=== PATIENT | female | born 1955 | race Caucasian/White ===

== ENCOUNTER 2016-05-26 08:41 | Day surgery (SDC) | payer OTHER ==
[~2016-05-26] VITALS: Ht 167.6 cm; Wt 82.3 kg
--- NOTE | 2016-05-26 07:46 | PCM.HPANE ---
Patient Data Surgeon Admitting Provider: Attending Provider:Shira Recinos MD Primary Care Physician:Phill Soares MD Other Provider:ShalaocAna Laura[place] Anesthesia Reason for Visit Urge Incontinence, Urgency Of Urination Ht/WT & BMI Height (Feet): 5 Height (Inches): 6 Weight (Kilograms): 83.915 Body Mass Index 29.00 Allergies Coded Allergies: Sulfa (Sulfonamide Antibiotics) (Verified Allergy, Severe, RASH, 05/21/16) ciprofloxacin (Verified Allergy, Severe, RASH, 05/21/16) lisinopril (Verified Allergy, Severe, HYPERKALEMIA, 05/21/16) phenazopyridine (Verified Allergy, Severe, hives, 05/21/16) Past Anesthesia History Anesthesia History: Denies:: Abnormal Airway, Anesthesia Reactions, Difficult Intubation, Fam Anesthesia Reaction, Fam Malignant Hypertherm, Malignant Hyperthermia Diabetes History Hx Diabetes?: No MRSA MRSA: No Medications Hypertension Medication: Yes (FELODIPINE) Reported Medications Sulfamethoxazole/Trimeth 800-160 mg (Bactrim DS 800-160 mg)1 Each Tablet1 Tablet PO BID Ref 0 x 14 days (start 05/13/16) 05/21/[address] 40 Mg Tablet.dr40 Mg PO DAILY Ref 0 05/21/16 Oxybutynin Chloride ER 15 Mg Tab.er.2415 Mg PO DAILY Ref 0 05/21/16 Felodipine ER 10 Mg Tab.er.24h10 Mg PO DAILY Ref 0 05/21/16 Atorvastatin (Lipitor)20 Mg Cefriu54 Mg PO DAILY Ref 0 05/21/16 Discontinued Reported Medications Oxybutynin Chloride 5 Mg Tablet5 Mg PO TID Ref 0 11/04/15 Fesoterodine Fumarate-Expunged Drug, Do Not R (Toviaz-Expunged Drug, Do Not Renew!)8 Mg Tab.sr.24h8 Mg PO DAILY 01/12/12 Omeprazole-Expunged Drug, Do Not Renew! 40 Mg Capsule.dr40 Mg PO DAILY 01/12/12 Felodipine-Expunged Drug, Do Not Renew! (Plendil-Expunged Drug, Do Not Renew!)5 Mg Tablet5 Mg PO DAILY 01/12/12 Atorvastatin-Expunged Drug, Do Not Renew! 10 Mg Fzzckc73 Mg PO DAILY 01/12/12 Nitrofurantoin Macrocrystal-Expunged Drug, Do (Macrodantin-Expunged Drug, Do Not Renew!)50 Mg Asioajd52 Mg PO DAILY 02/07/08 History History of ENT Problems?: Yes HEENT History: Positive for:: Dysphagia (HX OF) Denies:: Abnormal Airway Difficult Intubation Hearing Problem Other HEENT Pertinent History: S/P TONSILLECTOMY Hx of Heart Problems?: Yes Cardiovascular History: Positive for:: Cardiac Surgery (HEART CATH 03/2011) Chest Pain (ATYPICAL 03/2011) Hypertension (HYPERLIPIDEMIA) Denies:: AICD Atrial Fibrillation Congestive Heart Failure Edema Heart Murmur (MPS 03/2011 (FALSE POSITIVE) EF 72%) Irregular Heartbeat Pacemaker Thrombophlebitis Valvular Heart Disease Hx of Respiratory Problem?: No Respiratory History: Denies:: Asthma COPD Cough Hemoptysis Pneumonia Tuberculosis Use of C-PAP Machine Hx Neurologic Problems?: No Neurological History: Denies:: CVA Dementia Hx of GI Problems?: Yes Gastrointestinal History: Positive for:: Gall Bladder Disease (S/P ELIDA) Gastroesphageal Reflux Heartburn Hiatal Hernia (S/P SENG FUNDOPLICATION) Denies:: Cirrhosis Diverticulitis Gastrointestinal Bleeding Hepatitis Rectal Bleeding Other GI Pertinent History: S/P APPY Hx of Problems?: Yes Genitourinary History: Positive for:: Urinary Tract Infection (HX OF UTI'S & INTERSTITIAL CYSTITIS S/P BLADDER "STRETCHING") Other Pertinent History: C/OF LUTS Female Hx: Positive for:: Endometriosis Denies:: Currently Pelvic Inflammatory Problems with Breasts? Skin History: Denies:: History Skin Disorders? Pressure Ulcers Hx Musculoskeletal Problems?: Yes Musculoskeletal History: Positive for:: Osteoarthritis (S/P CORTISONE INJECTIONS LT HIP (LAST 03/2016)) Denies:: Back Injury (C/OF LOWER BACK PAIN) Joint Replacement Hx of Psycho/Social Problems?: Yes Psycho Social History: Positive for:: Anxiety Denies:: Hx Depression Hx Surgeries?: Yes (HYST,SENG FUNDOPLICATION,APPY,ELIDA,BLADDER STRETCHING & SLING,HEART CATH) Hx Any Other Health Problems?: Yes Other History: Positive for:: Hospitalization (CARDIAC) Denies:: Cancer Endocrine Disease Thyroid Disease History Blood Transfusions: Denies:: Blood Transfuse Reaction Blood Transfusions Hx Diabetes: No Hx Alcohol Use: Yes (OCCAS)Hx Substance Use: NoHave You Smoked inLast 12 mo: NoApprox How Many Cigarettes/day: 1PPD Stop/Bang S-Snoring: Do You Snore Loudly: No T-Tired: feel tired, fatigued: No O-Obsered: Observed not breath: No P-Blood Pressure: treated: Yes B- Body Mass Index > 35 kg/m2: No A- Age over 50: Yes N- Neck Large Circumference: No G- Gender Male: No LEEANNE Total Score: 2 LEEANNE Risk Assessment: Low Risk, <3 Yes Risk Assessment Category Category 1A: Patient has history of documented sleep apnea, and HAS NOT received any narcotic, sedative or anesthesia administration during this stay. Category 1B: Patient has history of documented sleep apnea, and HAS received any narcotic , sedative or anesthesia administration during this stay Category 2: Patient has SUSPECTED Obstructive Sleep Apnea, and HAS received any narcotic , sedative or anesthesia administration during this stay. Category 3: Patient has SUSPECTED Obstructive Sleep Apnea and HAS NOT received narcotic, sedative or anesthesia administration during this stay. Category 4: Outpatient in Procedural Areas with known sleep apnea or who screen positive for High Risk via the STOP/BANG questionnaire. Exam Exam General Appearance: Alert, Oriented X3, Cooperative, No Acute Distress HEENT/AIRWAY: MP 2 Lungs: Clear to Auscultation, Normal Air Movement Heart: Exam Unremarkable, Regular Rate/Rhythm, No Murmurs/Rubs/Gallops Plan Impression Patient chart reviewed, patient interviewed and anesthestic plan with risks, benefits, and alternatives discussed, and informed consent obtained. ASA Physical Status: ASA2 Mod Systemic Disease Anesthetic Plan: MAC Bene/Risks/Altern/Consents: Yes HP Complete Prior to Induction: Yes Kale Thornton MD May 26, 2016 07:46
[~2016-05-26 08:41] MED LIST: ATOR20TA PO; CeFAZolin 2 Gm/50 mL D5W IV Premix IV ONE; FELO10TA3 PO; Lactated Ringer's 1,000 ML IV SCH; OXYB15TA PO; PANT40TA3 PO; SULF1TAB35 PO
[2016-05-26] MEDS ORDERED: Propofol 10,000 mCg/mL 20 mL Inj ONE (08:42)
[2016-05-26] MEDS ORDERED: fentaNYL-PF 50 mCg/mL 2 mL Inj ONE (08:42)
[2016-05-26 09:10] VITALS: BP 115/70; PULSE 65; RESP 18; O2SAT 94
[2016-05-26] MEDS ORDERED: Lactated Ringer's 1,000 ML IV ONE (09:28)
[2016-05-26] MEDS ORDERED: EPHEDrine Sulfate 50 mg/mL Inj IVPUSH PRN (10:55)
[2016-05-26] MEDS ORDERED: hydrALAZINE 20 mg/mL Inj IVPUSH PRN (10:55)
[2016-05-26] MEDS ORDERED: Lactated Ringer's 500 ML IV PRN (10:55)
[2016-05-26] MEDS ORDERED: Labetalol 5 mg/mL 4 mL Inj IV PRN (10:55)
[2016-05-26] MEDS ORDERED: Atropine 0.4 mg/mL Inj IVPUSH PRN (10:55)
[2016-05-26] MEDS ORDERED: Ondansetron 2 mg/mL 2 mL Inj IVPUSH PRN (10:55)
[2016-05-26] MEDS ORDERED: Dexamethasone 4 mg/mL Inj IVPUSH PRN (10:55)
[2016-05-26] MEDS ORDERED: fentaNYL-PF 50 mCg/mL 2 mL Inj IVPUSH PRN (10:55)
[2016-05-26] MEDS ORDERED: Phenylephrine 10,000 mCg/mL Inj IVPUSH PRN (10:55)
[2016-05-26] MEDS ORDERED: Lactated Ringer's 1,000 ML IV SCH (10:55)
[2016-05-26] MEDS ORDERED: HYDROmorphone 1 mg/mL Inj IVPUSH PRN (10:55)
[2016-05-26] MEDS ORDERED: MetoCLOpramide 5 mg/mL 2 mL Inj IVPUSH PRN (10:55)
[2016-05-26] MEDS ORDERED: Bupivacaine-MPF 0.25%/EPI 30 mL Inj INJ ONE (11:03)
[2016-05-26] MEDS ORDERED: Vancomycin 1,000 mg Inj IRRIGATION ONE (11:03)
[2016-05-26] MEDS ORDERED: Gentamicin 40 mg/mL 2 mL Inj IRRIGATION ONE (11:03)
[2016-05-26] MEDS ORDERED: Bupivacaine-MPF 0.5% W/EPI 30 mL Inj INFILTRATE ONE (11:03)
[2016-05-26] MEDS ORDERED: HYDROcodone-APAP 5-325 mg Tablet PO PRN (11:50)
[2016-05-26] MEDS ORDERED: Ondansetron 8 mg ODT Tablet PO PRN (11:50)
[2016-05-26 11:53] VITALS: BP 131/75; PULSE 61; RESP 16; O2SAT 94
[2016-05-26 12:18] VITALS: BP 115/68; PULSE 65; RESP 14; O2SAT 94
--- NOTE | 2016-05-26 12:35 | PCM.ANEP1 ---
Post Anesthesia Phase 1 PACU Phase 1 Assessment Vital Signs Vital Signs Date Time Temp Pulse Resp B/P Pulse Ox O2 Delivery O2 Flow Rate FiO2 05/26/16 12:18 65 14 115/68 94 Room Air 05/26/16 11:53 36.1 61 16 131/75 94 Room Air 05/26/16 09:10 37.0 65 18 115/70 94 Room Air Anesthetic Administered: MAC Level of Alertness: Awake, talking DE LA GARZA's with Equal Strength: Yes Pain: No Nausea or Vomiting: No Oxygen Delivery: Room Air Lungs: Clear to Auscultation, Normal Air Movement Kale Thornton MD May 26, 2016 12:35
--- NOTE | 2016-05-26 14:13 | PCM.ANEP2 ---
Post Anesthesia Evaluation ASA/CMS Post Anesthesia VS in Patient's Normal Range?: Yes Resp Stable; Airway Patent?: Yes CV Function & Hydration Stable: Yes Mental Status Recovered?: Yes Pain control Satisfactory?: Yes N/V Control Satisfactory?: Yes Kale Thornton MD May 26, 2016 14:13
--- NOTE | 2016-05-27 14:06 | OP ---
[address] [address] OPERATIVE REPORT PATIENT: CONOR LE : 1955 MR#: [id number] ADMIT: 05/26/2016 JOB ID: [id number] DATE OF SURGERY: 05/27/2016 SURGEON: Shira Recinos MD PROCEDURE: Stage 1 InterStim implant to include incision and placement of a transforaminal quadripolar electrode through the right S3 foramen as well as fluoroscopy and interpretation guidance. PREOPERATIVE DIAGNOSIS(ES): Urge urinary incontinence; urgency, frequency severe. POSTOPERATIVE DIAGNOSIS(ES): Urge urinary incontinence; urgency, frequency severe. INDICATIONS: The patient is a 60-year-old woman with a longstanding history of severe urinary symptoms including urinary urgency, frequency, urge incontinence failing conservative measures and multiple medications. Electing trial of sacral nerve modulation for her severe problems. PROCEDURE IN DETAIL: After appropriate informed consent was obtained, the patient was brought to the operating room. She received IV antibiotics prior to onset of the procedure. She was made comfortable in the prone position. All pressure points were carefully padded. She was cleaned, prepped, and draped the usual sterile fashion. The fluoroscope was brought in to identify the bony landmarks. We used a half/half mixture of lidocaine/Marcaine for local anesthesia. We anesthetized the area overlying the S3 foramen. A finder needle was used to traverse the right S3 foramen. We had excellent responses of toe and azeb indicating an S3 response. This finder needle was converted in Seldinger fashion to the obturator sheath to introduce the quadripolar electrode which was advanced under fluoroscopic guidance into good position. We had excellent responses on all four electrodes at low thresholds. The sheath was pulled back, allowing the tines to deploy, and locking the lead in place. We then created a right-sided buttock pocket sharply bluntly with electrocautery, again using local anesthesia. I tunneled the distal end of the lead out into this pocket. We made a connection to the extension wire which was then tunneled to the contralateral side to provide maximum distance between the externalized portion of the wire and the remaining permanent lead. Hemostasis was quite good. We irrigated all the wounds out copiously with vancomycin and gentamicin solution and closed them in two layers of 2-0 Vicryl suture and a layer of 4-0 Monocryl. The patient tolerated the procedure well and was taken in stable condition back to the one-day surgery area; she had been awake.
== END 2016-05-26 23:59 | disposition home or self-care (01) ==
LOC: SAS 08:41
PROVIDERS: ATTEND Urology
DX: N39.41 Urge incontinence (principal); R35.1 Nocturia; Z87.440 Personal history of urinary (tract) infections; I10 Essential (primary) hypertension; E78.5 Hyperlipidemia, unspecified; K21.9 Gastro-esophageal reflux disease without esophagitis; M19.90 Unspecified osteoarthritis, unspecified site; I25.10 Atherosclerotic heart disease of native coronary artery without angina pectoris; Z95.5 Presence of coronary angioplasty implant and graft; M81.0 Age-related osteoporosis without current pathological fracture; M54.5 Low back pain; N32.81 Overactive bladder; Z87.891 Personal history of nicotine dependence; N30.10 Interstitial cystitis (chronic) without hematuria
CPT/HCPCS: 64581; 76000; C1778; J0690; J1580; J2250; J3010; J3370; J7120

== ENCOUNTER 2016-06-04 05:43 | Day surgery (SDC) | payer OTHER ==
[~2016-06-04] VITALS: Ht 167.6 cm; Wt 82.8 kg
[~2016-06-04 05:43] MED LIST changes: -CeFAZolin 2 Gm/50 mL D5W IV Premix IV ONE; -Lactated Ringer's 1,000 ML IV SCH
[2016-06-04] MEDS ORDERED: Ondansetron 2 mg/mL 2 mL Inj ONE (05:44)
[2016-06-04] MEDS ORDERED: MetoCLOpramide 5 mg/mL 2 mL Inj ONE (05:44)
[2016-06-04] MEDS ORDERED: fentaNYL-PF 50 mCg/mL 2 mL Inj ONE (05:44)
[2016-06-04] MEDS ORDERED: Propofol 10,000 mCg/mL 20 mL Inj ONE (05:44)
[2016-06-04] MEDS ORDERED: Lidocaine PF 1% 30 mL Inj ONE (05:44)
[2016-06-04] MEDS ORDERED: Dexamethasone 4 mg/mL Inj ONE (05:44)
[2016-06-04] MEDS: Lactated Ringer's 1,000 ML IV SCH ×2 (05:50→07:44)
[2016-06-04] MEDS ORDERED: CeFAZolin Inj 2 GM in IV Premix 1 EACH IV ONE (06:00)
[2016-06-04 06:16] VITALS: BP 114/74; PULSE 70; RESP 18; O2SAT 96
[2016-06-04] MEDS ORDERED: fentaNYL-PF 50 mCg/mL 2 mL Inj IVPUSH PRN (07:10)
[2016-06-04] MEDS ORDERED: Labetalol 5 mg/mL 4 mL Inj IV PRN (07:10)
[2016-06-04] MEDS ORDERED: Lactated Ringer's 500 ML IV PRN (07:10)
[2016-06-04] MEDS ORDERED: HYDROmorphone 1 mg/mL Inj IVPUSH PRN (07:10)
[2016-06-04] MEDS ORDERED: Ondansetron 2 mg/mL 2 mL Inj IVPUSH PRN (07:10)
[2016-06-04] MEDS ORDERED: hydrALAZINE 20 mg/mL Inj IVPUSH PRN (07:10)
[2016-06-04] MEDS ORDERED: Lactated Ringer's 1,000 ML IV SCH (07:10)
[2016-06-04] MEDS ORDERED: Phenylephrine 10,000 mCg/mL Inj IVPUSH PRN (07:10)
[2016-06-04] MEDS ORDERED: MetoCLOpramide 5 mg/mL 2 mL Inj IVPUSH PRN (07:10)
[2016-06-04] MEDS ORDERED: Atropine 0.4 mg/mL Inj IVPUSH PRN (07:10)
[2016-06-04] MEDS ORDERED: Dexamethasone 4 mg/mL Inj IVPUSH PRN (07:10)
[2016-06-04] MEDS ORDERED: EPHEDrine Sulfate 50 mg/mL Inj IVPUSH PRN (07:10)
--- NOTE | 2016-06-04 07:10 | PCM.HPANE ---
Patient Data Date of Service: Jun 04, 2016 Surgeon Admitting Provider: Attending Provider:Shira Reicnos MD Primary Care Physician:Phill Soares MD Other Provider:Jailene Godinez Anesthesia Reason for Visit Urge Incontinence, Urgency Of Urination Ht/WT & BMI Height (Feet): 5 Height (Inches): 6.00 Weight (Kilograms): 82.8 Body Mass Index 29.00 Allergies Coded Allergies: Sulfa (Sulfonamide Antibiotics) (Verified Allergy, Severe, RASH, 05/21/16) ciprofloxacin (Verified Allergy, Severe, RASH, 05/21/16) lisinopril (Verified Allergy, Severe, HYPERKALEMIA, 05/21/16) phenazopyridine (Verified Allergy, Severe, hives, 05/21/16) Past Anesthesia History Anesthesia History: Positive for:: Anesthesia Reactions (patient very nauseated with MAC anesthetic. ), Denies:: Abnormal Airway, Difficult Intubation, Fam Anesthesia Reaction, Fam Malignant Hypertherm, Malignant Hyperthermia Diabetes History Hx Diabetes?: No MRSA MRSA: No Medications Hypertension Medication: Yes Home Meds Incl Beta Ole: No Reported Medications Sulfamethoxazole/Trimeth 800-160 mg (Bactrim DS 800-160 mg)1 Each Tablet1 Tablet PO BID Ref 0 x 14 days (start 05/13/16) 05/21/[address] 40 Mg Tablet.dr40 Mg PO DAILY Ref 0 05/21/16 Oxybutynin Chloride ER 15 Mg Tab.er.2415 Mg PO DAILY Ref 0 05/21/16 Felodipine ER 10 Mg Tab.er.24h10 Mg PO DAILY Ref 0 05/21/16 Atorvastatin (Lipitor)20 Mg Scmldn28 Mg PO DAILY Ref 0 05/21/16 History History of ENT Problems?: Yes HEENT History: Positive for:: Dysphagia (HX OF) Denies:: Abnormal Airway Difficult Intubation Hearing Problem Hx of Heart Problems?: Yes Cardiovascular History: Positive for:: Cardiac Surgery (heart cath for chest pressure, negative study) Hypertension Denies:: AICD Atrial Fibrillation Chest Pain Congestive Heart Failure Edema Heart Murmur Irregular Heartbeat Pacemaker Thrombophlebitis Valvular Heart Disease Hx of Respiratory Problem?: No Respiratory History: Denies:: Asthma COPD Cough Hemoptysis Oxygen Administration Pneumonia Tuberculosis Use of C-PAP Machine Hx Neurologic Problems?: No Neurological History: Denies:: CVA Dementia Multiple Sclerosis Parkinson's Disease Seizures Hx of GI Problems?: Yes Gastrointestinal History: Positive for:: Gall Bladder Disease (removed) Gastroesphageal Reflux Heartburn Hiatal Hernia (hx of seng) Denies:: Cirrhosis Diverticulitis Gastrointestinal Bleeding Hepatitis Rectal Bleeding Hx of Problems?: Yes Genitourinary History: Denies:: Urinary Tract Infection (past hx of) Female Hx: Positive for:: Endometriosis Denies:: Currently Pelvic Inflammatory Problems with Breasts? Skin History: Denies:: History Skin Disorders? Pressure Ulcers Hx Musculoskeletal Problems?: Yes Musculoskeletal History: Denies:: Back Injury (hx of Low back pain) Joint Replacement Hx of Psycho/Social Problems?: Yes Psycho Social History: Positive for:: Anxiety Denies:: Hx Depression Hx Surgeries?: Yes (HYST,SENG FUNDOPLICATION,APPY,ELIDA,BLADDER STRETCHING & SLING,HEART CATH) Hx Any Other Health Problems?: Yes Other History: Positive for:: Hospitalization (CARDIAC) Denies:: Cancer Endocrine Disease Thyroid Disease History Blood Transfusions: Denies:: Blood Transfuse Reaction Blood Transfusions Hx Diabetes: No Hx Alcohol Use: Yes (OCCAS)Hx Substance Use: No Smoking Status: Former Smoker Have You Smoked inLast 12 mo: No Stop/Bang Treated for Sleep Apnea?: No Do You Have a CPAP Machine?: No S-Snoring: Do You Snore Loudly: No T-Tired: feel tired, fatigued: No O-Obsered: Observed not breath: No P-Blood Pressure: treated: Yes B- Body Mass Index > 35 kg/m2: No A- Age over 50: Yes N- Neck Large Circumference: No G- Gender Male: No LEEANNE Total Score: 2 LEEANNE Risk Assessment: Low Risk, <3 Yes Risk Assessment Category Category 1A: Patient has history of documented sleep apnea, and HAS NOT received any narcotic, sedative or anesthesia administration during this stay. Category 1B: Patient has history of documented sleep apnea, and HAS received any narcotic , sedative or anesthesia administration during this stay Category 2: Patient has SUSPECTED Obstructive Sleep Apnea, and HAS received any narcotic , sedative or anesthesia administration during this stay. Category 3: Patient has SUSPECTED Obstructive Sleep Apnea and HAS NOT received narcotic, sedative or anesthesia administration during this stay. Category 4: Outpatient in Procedural Areas with known sleep apnea or who screen positive for High Risk via the STOP/BANG questionnaire. Exam Exam Vital Signs Vital Signs Date Time Temp Pulse Resp B/P Pulse Ox O2 Delivery O2 Flow Rate FiO2 06/04/16 06:16 36.3 70 18 114/74 96 Room Air General Appearance: Alert, Oriented X3, Cooperative Lungs: Clear to Auscultation, Normal Air Movement Heart: Regular Rate/Rhythm, Normal S1, Normal S2 Meds/Labs/Diagnostics Admission Meds Current Medications Lactated Ringer's (Lr) 1,000 ml @ 120 mls/hr Q8H20M IV Last administered on t 05:50; Start 06/04/16 at 05:00; Stop 06/04/16 at 13:19 Plan Impression Patient chart reviewed, patient interviewed and anesthestic plan with risks, benefits, and alternatives discussed, and informed consent obtained. NPO Status: 730pm ASA Physical Status: ASA2 Mod Systemic Disease Anesthetic Plan: MAC Bene/Risks/Altern/Consents: Yes HP Complete Prior to Induction: Yes Abhisehk Simmons MD Jun 04, 2016 06:55
[2016-06-04] MEDS ORDERED: Bupivacaine-MPF 0.5% W/EPI 30 mL Inj INFILTRATE ONE (07:43)
[2016-06-04] MEDS ORDERED: Vancomycin 1,000 mg Inj IRRIGATION ONE (07:45)
[2016-06-04] MEDS ORDERED: Gentamicin 40 mg/mL 2 mL Inj IRRIGATION ONE (07:46)
--- NOTE | 2016-06-04 08:09 | PCM.ANEP1 ---
Post Anesthesia Phase 1 PACU Phase 1 Assessment Date of Service: Jun 04, 2016 Vital Signs Phase II 96% RA, HR 67, RR 12, BP 109/66, T 36.4 Vital Signs Date Time Temp Pulse Resp B/P Pulse Ox O2 Delivery O2 Flow Rate FiO2 06/04/16 06:16 36.3 70 18 114/74 96 Room Air Anesthetic Administered: MAC Level of Alertness: Awake, talking DE LA GARZA's with Equal Strength: Yes Pain: No Nausea or Vomiting: No Oxygen Delivery: Room Air Lungs: Normal Air Movement Abhishek Simmons MD Jun 04, 2016 08:09
[2016-06-04 08:10] VITALS: BP 109/66; PULSE 54; RESP 16; O2SAT 94
[2016-06-04] MEDS ORDERED: HYDROcodone-APAP 5-325 mg Tablet PO PRN (08:10)
[2016-06-04] MEDS ORDERED: Ondansetron 8 mg ODT Tablet PO PRN (08:10)
--- NOTE | 2016-06-04 08:15 | PCM.ANEP2 ---
Post Anesthesia Evaluation ASA/CMS Post Anesthesia Date of Service: Jun 04, 2016 VS in Patient's Normal Range?: Yes Resp Stable; Airway Patent?: Yes CV Function & Hydration Stable: Yes Mental Status Recovered?: Yes Pain control Satisfactory?: Yes N/V Control Satisfactory?: Yes Abhishek Simmons MD Jun 04, 2016 08:15
[2016-06-04 08:40] VITALS: BP 116/62; PULSE 50; RESP 16; O2SAT 94
[2016-06-04 08:55] VITALS: BP 119/68; PULSE 51; RESP 16; O2SAT 95
--- NOTE | 2016-06-05 21:30 | OP ---
[address] [address] OPERATIVE REPORT PATIENT: CONOR LE : 1955 MR#: [id number] ADMIT: 06/04/2016 JOB ID: [id number] DATE OF SURGERY: 06/04/2016 PROCEDURE NAME: Stage 2 InterStim implant to include 1 IPG implantation and 2 initial complexinitial programming and setup of device. SURGEON: Shira Recinos MD. ANESTHESIA: Local with monitored anesthesia care, IV sedation. PREOPERATIVE DIAGNOSIS(ES): Urinary urgency, frequency, urge incontinence. POSTOPERATIVE DIAGNOSIS(ES): Urinary urgency, frequency, urge incontinence. INDICATIONS: Patient is a 60-year-old woman with a longstanding history of severe lower urinary tract symptoms, urgency, frequency, urge incontinence refractory to conservative measures and medical management, failing numerous medications, wishing to proceed with InterStim trial. Patient underwent implantation of sacral neuro electrode for testing purposes on May 26, 2016. Her results were outstanding, better than 80% improvement with her urgency and frequency. She is sleeping the night with only a few drops urge incontinence rather than soaking events. Very pleased wishing to move forward with permanent implant. PROCEDURE IN DETAIL: After appropriate informed consent was obtained, patient was brought to the operating room. She received IV antibiotics prior to onset of the procedure. She was made comfortable in the prone position. All pressure points carefully padded. Cleaned, prepped, and draped in usual sterile fashion. A half-half mixture of lidocaine, Marcaine was used for local anesthesia. The area overlying the right-sided buttock pocket was infiltrated and opened up sharply and carefully to expose the distal end of the permanent lead and the extension wire. The connections to the extension wire were cut and the externalized portion was allowed to fall away. We then removed the internal portion leaving only the distal end of the quadripolar electrode. The wound itself was enlarged to accommodate the size of a Medtronic 2 IPG. Hemostasis was achieved with electrocautery. It was irrigated out copiously with antibiotic solution of vancomycin and gentamicin. We then made connections to the Medtronic 2 IPG. With the ratcheted screwdriver, gentle tug revealed a good connection, fit nicely inside the pocket. It was irrigated further with antibiotic solution and closed in layers with a layer of 2-0 Vicryl running, a layer of 4-0 Monocryl subcu and then a layer of Dermabond. The patient was irrigated out between each layer with antibiotic solution. Tolerated the procedure very well. Was returned to one-day surgery area as she had been awake during the case. The device itself was set up with initial programming found to be operating within normal limits. Set up with a rate of 14, pulse width of 210. Program one was set up as 0 negative and 3 positive, program two was 1 negative and 3 positive, program three was 2 negative and 0 positive, and program four was 3 negative and 0 positive. MTDD
== END 2016-06-04 23:59 | disposition home or self-care (01) ==
LOC: SAS 05:43
PROVIDERS: ATTEND Urology
DX: N39.41 Urge incontinence (principal); R35.1 Nocturia; N32.81 Overactive bladder; Z87.440 Personal history of urinary (tract) infections; I10 Essential (primary) hypertension; E78.5 Hyperlipidemia, unspecified; K21.9 Gastro-esophageal reflux disease without esophagitis; I25.10 Atherosclerotic heart disease of native coronary artery without angina pectoris; M19.90 Unspecified osteoarthritis, unspecified site; M81.0 Age-related osteoporosis without current pathological fracture; Z95.5 Presence of coronary angioplasty implant and graft; Z87.891 Personal history of nicotine dependence
CPT/HCPCS: 64590; 95972; C1767; J0690; J1100; J1580; J2250; J2405; J2765; J3010; J3370; J7120